=== PATIENT | male | born 1935 | race Caucasian/White ===

== ENCOUNTER 2017-08-17 13:32 | Inpatient (IN) ==
--- NOTE | 2017-08-17 14:01 | Emergency Department Note ---
Disposition Clinical Impression: Weakness, Left-sided weakness, Frequent falls, Hyperglycemia Disposition: Admitted As Inpatient Condition: Fair Time of Disposition: 20:40 Neuro HPI - General Chief Complaint: ED Neuro Symptoms/Deficit Stated Complaint: Increase weakness Time Seen by Provider: 08/17/17 13:39 Source: patient, EMS Mode of arrival: EMS Limitations: no limitations Nursing Notes Reviewed: Yes Vital Signs Reviewed: Yes - History of Present Illness HPI Narrative: 81-year-old male history of dementia and prior CVA with residual left side weakness presents to the emergency department for weakness and frequent falls. He is here with his granddaughter who does this is with the history. On Friday patient sustained to fall and has since been weak. Unknown last known well suspect greater than 24 hours. He was doing therapy at home and his nurse aide called ambulance. Patient refused transport and evaluation. Since then he continues to be weak and has had multiple falls. Today patient was instructed to come to the emergency department for evaluation of stroke as he continues to have some left-sided weakness. The [facility] called for his evaluation for stroke. The granddaughter states he recently fell and injured his left knee. He has a history of a right knee replacement. He fell but denied loss of consciousness. He reports striking his head. Currently he denies any other complaints such as headache, chest pain, shortness of breath, abdominal pain. Symptom Onset Unknown: No - Related Data Home Medications: Home Medications Medication Instructions Recorded Confirmed Allopurinol [Zyloprim] 300 mg PO DAILY 08/17/17 08/17/17 Aspirin Enteric Coated [Aspirin EC] 81 mg PO DAILY 08/17/17 08/17/17 Atorvastatin [Lipitor] 40 mg PO HS 08/17/17 08/17/17 Bacitracin OINT [Ak-Tracin] 1 appl TP BID 08/17/17 08/17/17 Bisacodyl [Woman's Laxative] 5 mg PO DAILY PRN 08/17/17 08/17/17 Cholecalciferol (Vitamin D3) 3,000 unit PO DAILY 08/17/17 08/17/17 [Vitamin D3] Duloxetine HCl [Cymbalta] 60 mg PO DAILY 08/17/17 08/17/17 Furosemide [Lasix] 20 mg PO DAILY 08/17/17 08/17/17 Gabapentin [Neurontin] 300 mg PO BID 08/17/17 08/17/17 Insulin Glargine [Lantus] 60 unit SQ HS 08/17/17 08/17/17 Latanoprost [Xalatan] 1 drop BOTH EYES HS 08/17/17 08/17/17 Memantine HCl 10 mg PO BID 08/17/17 08/17/17 Potassium Chloride [Klor-Con 10 meq PO DAILY 08/17/17 08/17/17 Sprinkle] Saxagliptin HCl [Onglyza] 2.5 mg PO DAILY 08/17/17 08/17/17 Sennosides/Docusate Sodium 2 tab PO BID PRN 08/17/17 08/17/17 [Senna-Docusate Sodium Tablet] Tamsulosin [Flomax] 0.4 mg PO 08/17/17 08/17/17 Timolol Maleate 0.5% [Timolol 1 drop BOTH EYES QA 08/17/17 08/17/17 Maleate 0.5%] amLODIPine [Norvasc] 5 mg PO BID 08/17/17 08/17/17 glipiZIDE [Glucotrol] 5 mg PO BID 08/17/17 08/17/17 Allergies/Adverse Reactions: Allergies Allergy/AdvReac Type Severity Reaction Status Date / Time acetaminophen Allergy Itching Verified 08/17/17 13:45 metformin Allergy Hives Verified 08/17/17 13:45 Oxycodone Allergy Hives Verified 08/17/17 13:45 Terazosin Allergy Hives Verified 08/17/17 13:45 All systems ED: reviewed and negative except as stated. Review of Systems: As Per HPI Constitutional: Reports: weakness. Denies: fever, chills Cardiovascular: Denies: chest pain Respiratory: Denies: cough, dyspnea Gastrointestinal: Denies: abdominal pain, nausea, vomiting Genitourinary: Denies: urgency, dysuria Musculoskeletal: Denies: back pain, neck pain Integumentary: Denies: rash, abrasion Neurological: Reports: weakness, abnormal gait. Denies: headache Past Medical History - Past Medical History Attestation: Yes The following information was validated with the patient. Source: patient Medical history: Reports: arthritis, cancer, CVA, diabetes, hyperlipidemia, hypertension, renal disease Psychiatric history: Reports: depression - Social History Smoking Status: Never smoker Smokeless Tobacco Status: Yes Alcohol use: Reports: none Drug use: Reports: none Physical Exam - General Limitations: no limitations General appearance: alert, in no apparent distress - Head Head exam: atraumatic, normocephalic, normal inspection - Eye Eye exam: Present: normal appearance, PERRL, EOMI - ENT ENT exam: normal exam, normal oropharynx, mucous membranes moist - Neck Neck exam: Present: normal inspection, full ROM, trachea midline - Chest Chest inspection: Present: normal inspection, symmetric chest wall rise - Respiratory Respiratory exam: Present: normal lung sounds bilaterally - Cardiovascular Cardiovascular exam: Present: regular rate, normal rhythm, normal heart sounds - Abdominal Exam Abdominal exam: Present: soft, Non-Tender, normal bowel sounds. Absent: tenderness, distention, guarding, rebound, rigidity - Expanded Lower Extremity Exam Hip/Pelvis exam: Present: pelvis stable. Absent: external rotation, internal rotation, shortening Knee exam: Present: normal inspection, full ROM, tenderness (left knee), knee extension intact, other (prior right knee total knee replacement). Absent: deformity - Neurological Exam Neurological exam: Present: alert, oriented X3, CN II-XII intact - Expanded Neurological Exam Patient oriented to: Present: person, place, time Speech: Present: fluid speech Cranial nerves: EOM function (II, III, IV, ): Normal, facial sensation (V): Normal, facial palsy (VII): Abnormal Left, gag reflex (IX): Normal, spinal accessory function (XI): Normal, tongue deviation (XII): Normal Cerebellar function: heel to oliverso: Normal Motor strength - LUE: 5/5 Motor strength - RUE: 5/5 Motor strength - LLE: 5/5 Motor strength - RLE: 5/5 Upper motor neuron exam: león neglect: Absent bilaterally, pronator drift: Absent bilaterally Sensory exam upper extremity: light touch: Normal Sensory exam lower extremity: light touch: Normal - Psychiatric Psychiatric exam: Present: normal affect, normal mood - Skin Skin exam: Present: warm, dry, intact, normal color. Absent: rash, cyanosis, diaphoresis Course Course Narrative: Patient presents for concern of stroke. Initial NIH score of 2. Last well- known several days ago possibly Friday. He is not a TPA candidate. Stroke alert was not initiated. He has had frequent falls and we evaluated images to his left knee as well as his hip. CT of the head did not show any intracranial abnormality. No acute stroke at this time. Left knee showed some chronic osteoarthritic changes. No acute fracture. Review of his labs he has a mild leukocytosis. Some mild electrolyte abnormalities otherwise normal. Troponin less than 0.03. Given his current condition he would benefit admission for further evaluation for his weakness. - Consultations Consultation #1: Spoke with on-call hospitalist catarina Vasquez to admit for weakness, CVA workup, and frequent falls. No further orders at this time Vital Signs Temperature 98.8 F 08/17/17 13:36 Pulse Rate 76 08/17/17 13:36 Respiratory Rate 18 08/17/17 13:36 Blood Pressure 157/94 08/17/17 13:36 O2 Sat by Pulse Oximetry 95 08/17/17 13:36 Temperature 98.8 F 08/17/17 13:36 Pulse Rate 76 08/17/17 18:30 Respiratory Rate 18 08/17/17 18:30 Blood Pressure 141/97 08/17/17 18:30 O2 Sat by Pulse Oximetry 93 08/17/17 18:30 Oxygen Delivery Oxygen Delivery Room Air Neuro Symptoms/Deficit - MDM Narrative Medical decision making narrative: Patient was discussed with my attending physician who agrees with ED management and final disposition. They independently evaluated the patient. Please refer to their attestation to this encounter for additional information. This note was generated by [employer] voice recognition software and as a result grammatical or spelling errors may occur using this program. - Differential Diagnosis Likely: cerebrovascular accident - Medical Records Medical records reviewed: Yes I reviewed the patient's medical records. - Lab Data Lab results reviewed: Yes I reviewed the patient's lab results. Result diagrams: 08/17/17 13:55 08/17/17 13:55 Lab Results 08/17/17 08/17/17 08/17/17 Range/Units 13:39 13:55 13:55 WBC 13.4 H (4.3-11.1) K/mcL RBC 5.62 H (4.19-5.50) M/mcL Hgb 16.1 (12.9-16.9) g/dL Hct 48.1 (37.5-50.1) % MCV 85.6 (83.0-100.0) fL MCH 28.6 (28.0-33.3) pg MCHC 33.5 (31.6-35.5) g/dL RDW 14.1 (11.5-14.5) % Plt Count 300 (140-400) K/mcL MPV 11.0 (9.4-12.4) fL Immature Gran % 0.4 (0-4) % Seg Neutrophils % 66.9 % Lymphocytes % 22.4 % Monocytes % 8.5 % Eosinophils % 1.4 % Basophils % 0.4 % Neutrophils # 9.0 H (1.6-8.9) K/mcL Lymphocytes # 3.0 (0.6-4.6) K/mcL Monocytes # 1.1 (0.0-1.3) K/mcL Eosinophils # 0.2 (0.0-0.6) K/mcL Basophils # 0.1 (0.0-0.2) K/mcL PT 11.5 (9.4-12.1) Seconds INR 1.1 APTT 35.7 (26.0-36.0) Seconds Sodium (136-145) mEq/L Potassium (3.5-5.1) mEq/L Chloride (98-107) mEq/L Carbon Dioxide (23-29) mEq/L BUN (8-23) mg/dL Creatinine (0.70-1.30) mg/dL Est GFR ( Amer) (> 60) Est GFR (Non-Af Amer) (> 60) BUN/Creatinine Ratio (6-26) Glucose (70-105) mg/dL POC Glucose 370 H (70-99) mg/dL Calculated Osmolality (280-300) Calcium (8.6-10.3) mg/dL Troponin I (< 0.04) ng/mL 08/17/17 Range/Units 13:55 WBC (4.3-11.1) K/mcL RBC (4.19-5.50) M/mcL Hgb (12.9-16.9) g/dL Hct (37.5-50.1) % MCV (83.0-100.0) fL MCH (28.0-33.3) pg MCHC (31.6-35.5) g/dL RDW (11.5-14.5) % Plt Count (140-400) K/mcL MPV (9.4-12.4) fL Immature Gran % (0-4) % Seg Neutrophils % % Lymphocytes % % Monocytes % % Eosinophils % % Basophils % % Neutrophils # (1.6-8.9) K/mcL Lymphocytes # (0.6-4.6) K/mcL Monocytes # (0.0-1.3) K/mcL Eosinophils # (0.0-0.6) K/mcL Basophils # (0.0-0.2) K/mcL PT (9.4-12.1) Seconds INR APTT (26.0-36.0) Seconds Sodium 133 L (136-145) mEq/L Potassium 3.8 (3.5-5.1) mEq/L Chloride 96 L (98-107) mEq/L Carbon Dioxide 28 (23-29) mEq/L BUN 16 (8-23) mg/dL Creatinine 1.16 (0.70-1.30) mg/dL Est GFR ( Amer) > 60 (> 60) Est GFR (Non-Af Amer) > 60 (> 60) BUN/Creatinine Ratio 14 (6-26) Glucose 387 H (70-105) mg/dL POC Glucose (70-99) mg/dL Calculated Osmolality 293 (280-300) Calcium 9.9 (8.6-10.3) mg/dL Troponin I < 0.03 (< 0.04) ng/mL - Radiology Data Radiology results reviewed: Yes I reviewed the patient's radiology results. Head CT 08/17/17 13:39 IMPRESSION: Sequela of chronic small vessel ischemic change. No acute intracranial abnormality seen. D/ / 08/17/2017 14:37:03 Dionte Smith MD / karin Interpreting Provider: Dionte Smith MD Cervical Spine CT 08/17/17 13:40 IMPRESSION: 1. No acute findings in the cervical spine. 2. Mild to moderate cervical spine degenerative changes. 3. Focal subcutaneous contusion in the left paramedian upper back. D/ / Brad Plummer MD / Brad Plummer MD Interpreting Provider: Brad Plummer MD Chest X-Ray 08/17/17 13:40 IMPRESSION: Nonspecific widening of the superior mediastinum. Consider further evaluation with CT chest with contrast. D/ / Murray Wang MD / Murray Wang MD Interpreting Provider: Murray Wang MD Knee X-Ray 08/17/17 13:41 IMPRESSION: 1. No acute osseous abnormality 2. Mild tricompartmental degenerative changes and small effusion. D/ / Murray Wang MD / Murray Wang MD Interpreting Provider: Murray Wang MD Pelvis X-Ray 08/17/17 13:41 IMPRESSION: No acute osseous abnormality of the pelvis. D/ / Adalberto Perez MD / Adalberto Perez MD Interpreting Provider: Adalberto Perez MD - EKG Data EKG attestation: Yes I reviewed and interpreted this EKG. EKG results narrative: EKG performed 1343 atrial fibrillation 78 beats per minute, left bundle branch block no Sgarbossa criteria. Compared to the prior EKG performed at the [facility] on 07/28/2017 showed sinus rhythm with left bundle branch block 76 beats per minute. Otherwise no acute ischemic findings. NIH Stroke Scale - Level of Consciousness LOC: Alert - LOC Questions LOC Questions: Answers one correctly (knew age but did not know month, typically is disoriented to time from dementia) - LOC Commands LOC Commands: Performs both correctly - Best Gaze Best Gaze: Normal - Visual Visual: No visual loss - Facial Palsy Facial Palsy: Minor asymmetry on smiling, flattened nasolabial fold (left) - Motor Arms Motor Arm-Left: No drift for 10 seconds Motor Arm-Right: No drift for 10 seconds - Motor Legs Motor Leg-Left: No drift for 5 seconds Motor Leg-Right: No drift for 5 seconds - Limb Ataxia Limb Ataxia: Absent of affected limb too weak to perform exam - Sensory Sensory: Normal - Best Language Best Language: No aphasia - Dysarthria Dysarthria: Normal - Extinction and Inattention Extinction and Inattention: Normal - NIHSS Total Score NIHSS Total Score: 2 TPA Checklist - Eligibilty for IV tPA 1. LKW equal to or less than 4.5 hours be before treatment: No Attestation Statement - Attestation Attestation: Patient was seen with resident physician. I reviewed the history, physical, assessment and plan, and agree with the findings. I also personally evaluated this patient and had [id number] time with this patient. 81-year-old male presents to the emergency department with chief complaint of increased weakness. Patient says he was seen at the and was transferred here for more definitive management. He states the weakness started on Friday when he fell. He landed on his left knee. Says he hit his head but did not pass out. He has had residual weakness in the left side secondary to an old stroke. Says it feels a little bit worse than usual. Also has some hypomobility of the left side of his face and is unclear if this is new or old. No fevers or chills no chest pain or shortness of breath. Denies other injuries. Review of systems as above remained reviewed negative. Physical exam vital signs are stable. ENT shows no traumatic injury. Neck and back are nontender. Heart regular rhythm and rate. Lungs clear. Abdomen soft and nontender. Extremities abrasions to the left knee but otherwise no obvious deformities. It is diffusely tender to palpation. Neurologically patient has slight hypomobility to the left side of the face again unclear if this is new or old. Leg strength seems relatively symmetric though it hurts when he moves his left leg. 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 Cranial nerves are otherwise intact. Skin abrasion is noted no other rashes. Psych normal. ED course we will do a full neurologic workup on the patient. We will likely admit to the hospital for PT OT and continued evaluation. We will treat symptoms while he is here in the emergency department. Workup was largely unremarkable except for mildly elevated white blood cell count and increased glucose. Patient had no changes in his neurologic status throughout the course of the stay. We spoke with the hospitalist service to arrange for admission for additional evaluation and treatment as indicated. I agree with resident physician assessment and plan.
[2017-08-17 14:05] LABS: Hematocrit 48.1 % (37.5-50.1); Hemoglobin 16.1 g/dL (12.9-16.9); Immature Granulocytes % 0.4 % (0-4); Lymphocytes % 22.4 %; Mean Corpuscular HGB Conc 33.5 g/dL (31.6-35.5); Mean Corpuscular Hemoglobin 28.6 pg (28.0-33.3); Mean Corpuscular Volume 85.6 fL (83.0-100.0); Monocytes % 8.5 %; Platelet Count 300 K/mcL (140-400); Red Blood Count 5.62 M/mcL (4.19-5.50); Red Cell Distribution Width 14.1 % (11.5-14.5); Segmented Neutrophils % 66.9 %
[2017-08-17 14:06] LABS: Basophils # 0.1 K/mcL (0.0-0.2); Basophils % 0.4 %; Eosinophils # 0.2 K/mcL (0.0-0.6); Eosinophils % 1.4 %; Monocytes # 1.1 K/mcL (0.0-1.3)
[2017-08-17 14:26] LABS: BUN/Creatinine Ratio 14 (6-26); Blood Urea Nitrogen 16 mg/dL (8-23); Calcium 9.9 mg/dL (8.6-10.3); Carbon Dioxide 28 mEq/L (23-29); Chloride 96 mEq/L (98-107); Glucose 387 mg/dL (70-105); Osmolality,Calculated 293 (280-300); Potassium 3.8 mEq/L (3.5-5.1); Sodium 133 mEq/L (136-145); eGFR For African Americans > 60 (> 60); eGFR For Non-African Americans > 60 (> 60)
[2017-08-17 14:27] LABS: Troponin I < 0.03 ng/mL (< 0.04)
[2017-08-17 14:56] LABS: Activated Partial Thrombo Time 35.7 Seconds (26.0-36.0); INR 1.1; Prothrombin Time 11.5 Seconds (9.4-12.1)
[2017-08-17] MEDS ORDERED: Aspirin 81 MG TAB.CHEW PO STA (17:54)
--- NOTE | 2017-08-17 20:28 | Internal Med History&Physical ---
Date of Encounter: 08/17/17 Time of Encounter: 20:24 Assessment and Plan (1) Left-sided weakness Current visit: Yes Status: Acute Head CT negative will obtain MRI tomorrow on consult neurology. (2) Frequent falls Current visit: Yes Status: Acute Recurrent fall due to generalized weakness and left-sided weakness as well we will consult neurology for further evaluation then PTOT (3) HTN (hypertension) Current visit: Yes Status: Chronic Chronic we will resume home medication Qualifiers: Hypertension type: essential hypertension Qualified Code(s): I10 - Essential (primary) hypertension (4) Diabetes 1.5, managed as type 2 Current visit: Yes Status: Chronic Chronic resume home medication and place on sliding scale (5) Acute depression Current visit: Yes Status: Chronic Chronic resume home medication Internal Medicine - H&P: HPI Chief complaint: recurrent falls and left v sided weakness Admitted From: Emergency Dept Plans for Post Hospital Care: Home History of present illness: Mr. Gimenez is a 81 year old male Patient with history of hypertension, diabetes, high cholesterol, CK D and depression and dementia patient has had recurrent fall in the last 3 days He is a [facility] patient Patient was seen by visiting nurse and then called [facility] for evaluation for possible stroke because of left-sided weakness and then was told to come the emergency room here. Patient reported generalized weakness and that left-sided weakness but able to move the arm and legs. All imaging was negative including head CT spine CTs pelvis no fracture patient will be admitted for further evaluation. Past Med Surg Social Fam HX - Past Medical History Medical history: arthritis, cancer, CVA, diabetes, hyperlipidemia, hypertension , renal disease Psychiatric history: depression - Social History Smoking Status: Never smoker Smokeless Tobacco Status: Yes Alcohol use: none Drug use: none Internal Medicine - H&P: Meds Allopurinol [Zyloprim] 300 mg PO DAILY 08/17/17 [History] Aspirin Enteric Coated [Aspirin EC] 81 mg PO DAILY 08/17/17 [History] Atorvastatin [Lipitor] 40 mg PO HS 08/17/17 [History] Bacitracin OINT [Ak-Tracin] 1 appl TP BID 08/17/17 [History] Bisacodyl [Woman's Laxative] 5 mg PO DAILY PRN 08/17/17 [History] Cholecalciferol (Vitamin D3) [Vitamin D3] 3,000 unit PO DAILY 08/17/17 [History] Duloxetine HCl [Cymbalta] 60 mg PO DAILY 08/17/17 [History] Furosemide [Lasix] 20 mg PO DAILY 08/17/17 [History] Gabapentin [Neurontin] 300 mg PO BID 08/17/17 [History] Insulin Glargine [Lantus] 60 unit SQ HS 08/17/17 [History] Latanoprost [Xalatan] 1 drop BOTH EYES HS 08/17/17 [History] Memantine HCl 10 mg PO BID 08/17/17 [History] Potassium Chloride [Klor-Con Sprinkle] 10 meq PO DAILY 08/17/17 [History] Saxagliptin HCl [Onglyza] 2.5 mg PO DAILY 08/17/17 [History] Sennosides/Docusate Sodium [Senna-Docusate Sodium Tablet] 2 tab PO BID PRN 08/17 [History] Tamsulosin [Flomax] 0.4 mg PO HS 08/17/17 [History] Timolol Maleate 0.5% [Timolol Maleate 0.5%] 1 drop BOTH EYES QAM 08/17/17 [ History] amLODIPine [Norvasc] 5 mg PO BID 08/17/17 [History] glipiZIDE [Glucotrol] 5 mg PO BID 08/17/17 [History] 3 Allergy/AdvReac Type Severity Reaction Status Date / Time acetaminophen Allergy Itching Verified 08/17/17 13:45 metformin Allergy Hives Verified 08/17/17 13:45 Oxycodone Allergy Hives Verified 08/17/17 13:45 Terazosin Allergy Hives Verified 08/17/17 13:45 All Systems PM: A 10-system review of systems was performed and is negative for pertinent findings except as documented above in the HPI. - Constitutional Vitals: Temp Pulse Resp BP Pulse Ox 98.8 F 76 18 141/97 93 08/17/17 13:36 08/17/17 18:30 08/17/17 18:30 08/17/17 18:30 08/17/17 18:30 - Head Head exam: Present: atraumatic, normocephalic - Eye Eye exam: Present: PERRL, conjuntiva pink, sclera anicteric Pupils: Present: PERRL - Neck Neck exam general surgery: Present: supple, trachea midline. Absent: lymphadenopathy - Cardiovascular Cardiovascular exam: Present: RRR, +S1, +S2. Absent: diastolic murmur, gallop, rubs, systolic murmur - Extremities Exam Extremities exam: Present: warm, radial pulses palpable and symmetrical. Absent : calf tenderness, cyanotic, pedal edema Internal Med - H&P Results - Labs CBC & Chem 7: 08/17/17 13:55 08/17/17 13:55 Labs: Short CBC 08/17/17 Range/Units 13:55 WBC 13.4 H (4.3-11.1) K/mcL Hgb 16.1 (12.9-16.9) g/dL Hct 48.1 (37.5-50.1) % Plt Count 300 (140-400) K/mcL Neutrophils # 9.0 H (1.6-8.9) K/mcL BMP 08/17/17 13:55 Sodium 133 L Potassium 3.8 Chloride 96 L Carbon Dioxide 28 BUN 16 Creatinine 1.16 Glucose 387 H Calcium 9.9 Cardiac Enzymes 08/17/17 Range/Units 13:55 Troponin I < 0.03 (< 0.04) ng/mL - Impressions ITS Impressions Head CT 08/17/17 13:39 IMPRESSION: Sequela of chronic small vessel ischemic change. No acute intracranial abnormality seen. D/ / 08/17/2017 14:37:03 Dionte Smith MD / karin Interpreting Provider: Dionte Smith MD Cervical Spine CT 08/17/17 13:40 IMPRESSION: 1. No acute findings in the cervical spine. 2. Mild to moderate cervical spine degenerative changes. 3. Focal subcutaneous contusion in the left paramedian upper back. D/ / Brad Plummer MD / Brad Plummer MD Interpreting Provider: Brad Plummer MD Chest X-Ray 08/17/17 13:40 IMPRESSION: Nonspecific widening of the superior mediastinum. Consider further evaluation with CT chest with contrast. D/ / Murray Wang MD / Murray Wang MD Interpreting Provider: Murray Wang MD Knee X-Ray 08/17/17 13:41 IMPRESSION: 1. No acute osseous abnormality 2. Mild tricompartmental degenerative changes and small effusion. D/ / Murray Wang MD / Murray Wang MD Interpreting Provider: Murray Wang MD Pelvis X-Ray 08/17/17 13:41 IMPRESSION: No acute osseous abnormality of the pelvis. D/ / Adalberto Perez MD / Adalberto Perez MD Interpreting Provider: Adalberto Perez MD
[2017-08-17] MEDS ORDERED: Acetaminophen 325 MG TABLET PO PRN (20:33)
[2017-08-17] MEDS ORDERED: Naloxone 0.4 MG/ML INJ IVP PRN (20:33)
[2017-08-17] MEDS ORDERED: traMADol 50 MG TABLET PO PRN (20:33)
[2017-08-17] MEDS ORDERED: Sennosides/Docusate Sodium TABLET PO PRN (20:36)
[2017-08-17] MEDS ORDERED: *HR* Dextrose 50 % in Water (Syg) 50 ML SYRINGE IVP PRN (20:43)
[2017-08-17] MEDS ORDERED: D5% in Water 1,000 ML IVC PRN (20:43)
[2017-08-17] MEDS ORDERED: Dextrose Gel 15 GM/37.5 ML TUBE PO PRN ×2 (20:43)
[2017-08-17] MEDS ORDERED: 0.9 % Sodium Chloride 1,000 ML IVC SCH (20:45)
[2017-08-17] MEDS ORDERED: NON-FORMULARY MEDICATION 1 EACH EACH (Insulin Glargine [Lantus] 60 UNIT) SQ SCH (21:00)
[2017-08-17] MEDS ORDERED: Insulin LISPRO 300 UNITS/3 ML VIAL SQ SCH (21:00)
[2017-08-17] MEDS: Insulin DETEMIR 100 UNIT/ML X5UNITS SQ SCH (22:51)
[2017-08-17] MEDS: amLODIPine 5 MG TABLET PO SCH (23:11)
[2017-08-17] MEDS: Gabapentin 300 MG CAPSULE PO SCH (23:11)
[2017-08-18] MEDS: Latanoprost 2.5 ML BOTTLE BOTH EYES SCH ×2 (01:35→22:06)
[2017-08-18 03:56] LABS: Hematocrit 45.3 % (37.5-50.1); Hemoglobin 15.2 g/dL (12.9-16.9); Mean Corpuscular HGB Conc 33.6 g/dL (31.6-35.5); Mean Corpuscular Hemoglobin 28.7 pg (28.0-33.3); Mean Corpuscular Volume 85.5 fL (83.0-100.0); Mean Platelet Volume 10.8 fL (9.4-12.4); Platelet Count 274 K/mcL (140-400); Red Cell Distribution Width 14.3 % (11.5-14.5)
[2017-08-18 04:15] LABS: Alanine Aminotransferase 9 Units/L (7-52); Albumin 3.5 g/dL (3.5-5.7); Albumin/Globulin Ratio 1.2 (1.1-2.2); Alkaline Phosphatase 99 Units/L (34-104); Aspartate Amino Transferase 11 Units/L (13-39); BUN/Creatinine Ratio 17 (6-26); Bilirubin,Total 0.6 mg/dL (0.3-1.0); Blood Urea Nitrogen 17 mg/dL (8-23); Calcium 8.9 mg/dL (8.6-10.3); Carbon Dioxide 27 mEq/L (23-29); Chloride 99 mEq/L (98-107); Chol/HDL Ratio 4.9 (0-4.9); Cholesterol 128 mg/dL (< 200); Glucose 266 mg/dL (70-105); HDL Cholesterol 26 mg/dL (40-59); LDL Cholesterol,Calculated 49 mg/dL (0-99); Osmolality,Calculated 289 (280-300); Phosphorous 2.8 mg/dL (2.7-4.5); Sodium 134 mEq/L (136-145); Total Protein 6.5 g/dL (6.4-8.9); Triglycerides 267 mg/dL (< 150); eGFR For African Americans > 60 (> 60); eGFR For Non-African Americans > 60 (> 60)
[2017-08-18] MEDS: *HR* Enoxaparin 40 MG/0.4 ML SYRINGE SQ SCH (05:56)
[2017-08-18] MEDS ORDERED: Isovue-370 500 ML INFUS..BTL IV ONE (08:10)
--- NOTE | 2017-08-18 08:25 | Neurology - Consult Note ---
<Usman So - Last Filed: 08/18/17 08:18> Date of Encounter: 08/18/17 Time of Encounter: 08:18 Assessment and Plan (1) Left-sided weakness Current Visit: Yes Status: Acute neuro exam shows left upper extremity and left lower extremity weakness with hyporeflexia on left brachioradialis, triceps, biceps, patellar, Achilles. CT head shows chronic small vessel ischemic changes, no acute abnormalities. Cerebellar atrophy. Plan: Aspirin, statin. MRI pending. CTA head neck ordered. PT/OT. Echocardiogram ordered. (2) Frequent falls Current Visit: Yes Status: Acute x-ray pelvis knee, cxr negative for acute changes. CT cervical spine negative for fracture. Pt/OT (3) HTN (hypertension) Current Visit: Yes Status: Chronic controlled. continue home medicaitons Qualifiers: Hypertension type: essential hypertension Qualified Code(s): I10 - Essential (primary) hypertension (4) Diabetes 1.5, managed as type 2 Current Visit: Yes Status: Chronic Hyperglycemic on admission non-insulin dependent. HgA1c ordered (5) Atrial fibrillation Current Visit: Yes Status: Acute on admission EKg showed atrial fibrillation currently sinus rhythm not candidate for anticoagulation due to hx of multiple falls: high risk for bleeding. Qualifiers: Atrial fibrillation type: paroxysmal Qualified Code(s): I48.0 - Paroxysmal atrial fibrillation History of Present Illness Chief complaint: falls HPI: Mr. Gimenez is a 81 year old male presented with cc of fall. Hx obtained from patient and EMR. Patient was noticed by family to fall multiple times since last week. [facility]. Patient reports he has left sided weakness starting last firday. He fell to his left side and onto his left knee . Patient did not loose consciousness. Patient speech is noticeably garbled but he reports it is always that way. He reports hx of CVA 6- 8 years ago and also report hx of left sided weakness. He reports that falling is common for him. He denies numbness, tingling, difficulty swallowing, changes in vision, changes in hearing. Past Med Surg Social Fam HX - Past Medical History Medical history: arthritis, cancer, CVA, diabetes, hyperlipidemia, hypertension , renal disease Psychiatric history: depression - Social History Smoking Status: Never smoker Smokeless Tobacco Status: Yes Alcohol use: none Drug use: none Medications and Allergies Allopurinol [Zyloprim] 300 mg PO DAILY 08/17/17 [History] Aspirin Enteric Coated [Aspirin EC] 81 mg PO DAILY 08/17/17 [History] Atorvastatin [Lipitor] 40 mg PO HS 08/17/17 [History] Bacitracin OINT [Ak-Tracin] 1 appl TP BID 08/17/17 [History] Bisacodyl [Woman's Laxative] 5 mg PO DAILY PRN 08/17/17 [History] Cholecalciferol (Vitamin D3) [Vitamin D3] 3,000 unit PO DAILY 08/17/17 [History] Duloxetine HCl [Cymbalta] 60 mg PO DAILY 08/17/17 [History] Furosemide [Lasix] 20 mg PO DAILY 08/17/17 [History] Gabapentin [Neurontin] 300 mg PO BID 08/17/17 [History] Insulin Glargine [Lantus] 60 unit SQ HS 08/17/17 [History] Latanoprost [Xalatan] 1 drop BOTH EYES HS 08/17/17 [History] Memantine HCl 10 mg PO BID 08/17/17 [History] Potassium Chloride [Klor-Con Sprinkle] 10 meq PO DAILY 08/17/17 [History] Saxagliptin HCl [Onglyza] 2.5 mg PO DAILY 08/17/17 [History] Sennosides/Docusate Sodium [Senna-Docusate Sodium Tablet] 2 tab PO BID PRN 08/17 [History] Tamsulosin [Flomax] 0.4 mg PO HS 08/17/17 [History] Timolol Maleate 0.5% [Timolol Maleate 0.5%] 1 drop BOTH EYES QAM 08/17/17 [ History] amLODIPine [Norvasc] 5 mg PO BID 08/17/17 [History] glipiZIDE [Glucotrol] 5 mg PO BID 08/17/17 [History] 3 Allergy/AdvReac Type Severity Reaction Status Date / Time acetaminophen Allergy Itching Verified 08/17/17 13:45 metformin Allergy Hives Verified 08/17/17 13:45 Oxycodone Allergy Hives Verified 08/17/17 13:45 Terazosin Allergy Hives Verified 08/17/17 13:45 All Systems: The remainder of the systems were reviewed and are negative Physical Examination - Vital Signs Vital Signs: Initial Vital Signs Temp Pulse Resp BP Pulse Ox 98.8 F 76 18 157/94 95 08/17/17 13:36 08/17/17 13:36 08/17/17 13:36 08/17/17 13:36 08/17/17 13:36 - Constitutional General appearance: comfortable - Neurologic Sensorimotor examination: intact Motor examination - right side: 08/30: deltoids, biceps, triceps, wrist flexion, wrist extension, lighting fixture installer, hip flexors, tibialis Anterior, quadriceps, toe extension (EHL), plantarflexion Motor examination - left side: 06/30: deltoids, biceps, triceps, wrist flexion, wrist extension, hip flexors, lighting fixture installer, quadriceps, tibialis Anterior, toe extension (EHL), plantarflexion Detailed sensory examination: light touch Reflexes: Biceps: 1+, Triceps: 1+, Brachioradialis: 1+, Patella: 1+, Achilles: 1 + Mental Status Examination: awake, oriented to person, oriented to place, follows commands appropriately, answers questions appropriately Cranial nerve examination: PERRL, EOMI, visual shepherd intact, sensory to face intact, mastication intact, hearing is intact symmetrically, soft palate elevates bilaterally upon phonation, tongue protrudes midline, no atrophy or facial fasiculations present Cerebellar examination: no dysmetria, dysarthria Results - Laboratory Findings CBC and BMP: 08/18/17 03:41 08/18/17 03:41 Abnormal lab findings: Abnormal lab results Neutrophils # 9.0 K/mcL (1.6-8.9) H 08/17/17 13:55 Sodium 134 mEq/L (136-145) L 08/18/17 03:41 Glucose 266 mg/dL (70-105) H 08/18/17 03:41 POC Glucose 360 mg/dL (70-99) H 08/17/17 22:09 AST 11 Units/L (13-39) L 08/18/17 03:41 Triglycerides 267 mg/dL (< 150) H 08/18/17 03:41 VLDL Cholesterol, Calc 53 mg/dL (< 31) H 08/18/17 03:41 HDL Cholesterol 26 mg/dL (40-59) L 08/18/17 03:41 Consult Discharge Plan - Plan [facility]errals[facility] Care Provider[facility] - <Brad Vail - Last Filed: 08/18/17 14:51> Date of Encounter: 08/18/17 Time of Encounter: 14:45 Assessment and Plan (1) Left-sided weakness Current Visit: Yes Status: Acute This patient certainly will must look to rule out the possibility of an acute right hemispheric lesion. CTA scans of the head and neck reveal no evidence of significant intracranial stenosis or stenosis of the carotid artery circulation. MRI scan of the brain is pending. I will reevaluate him in the morning. History of Present Illness HPI: The chart was reviewed, the patient was seen and examined along with the internal medicine resident. I agree with his assessment as stated above. All Systems: The remainder of the systems were reviewed and are negative Review of Systems: 10 point review of systems is consistent with a history of present illness and otherwise negative. Physical Examination - Vital Signs Vital Signs: Initial Vital Signs Temp Pulse Resp BP Pulse Ox 98.8 F 76 18 157/94 95 08/17/17 13:36 08/17/17 13:36 08/17/17 13:36 08/17/17 13:36 08/17/17 13:36 - Exam Exam: I did examine this patient independently and the medicine resident was with me at the time. I agree with his exam is recorded. Results - Laboratory Findings CBC and BMP: 08/18/17 03:41 08/18/17 03:41 Abnormal lab findings: Abnormal lab results Neutrophils # 9.0 K/mcL (1.6-8.9) H 08/17/17 13:55 Sodium 134 mEq/L (136-145) L 08/18/17 03:41 Glucose 266 mg/dL (70-105) H 08/18/17 03:41 POC Glucose 360 mg/dL (70-99) H 08/17/17 22:09 AST 11 Units/L (13-39) L 08/18/17 03:41 Triglycerides 267 mg/dL (< 150) H 08/18/17 03:41 VLDL Cholesterol, Calc 53 mg/dL (< 31) H 08/18/17 03:41 HDL Cholesterol 26 mg/dL (40-59) L 08/18/17 03:41
--- NOTE | 2017-08-18 09:07 | Internal Med Progress Note ---
<Fredrick Weinstein - Last Filed: 08/18/17 15:36> Date of Encounter: 08/18/17 Time of Encounter: 09:07 - Assessment and plan (1) Left-sided weakness Current Visit: Yes Status: Acute Assessment and plan: Patient frequently has falls, last 3 days ago but did not lose consciousness. Patient is currently asymptomatic. Neurology is on board, all work up so far has been negative for CVA. CT head negative for hemorrhage but does show chronic small vessel ischemic changes, cerebellar atrophy. CTA head/neck - Minimal narrowing involving the M1 segment of the right middle cerebral artery that is likely not clinically significant. Moderate chronic small vessel ischemic disease within the periventricular white matter with associated cerebral atrophy. - per nephro ct ASA, statin - MRI pending - PT/OT ordered - echocardiogram - pending - appreciate neuro's input (2) Dementia Current Visit: Yes Status: Acute Assessment and plan: continue home meds. Qualifiers: Qualified Code(s): F03.90 - Unspecified dementia without behavioral disturbance (3) Hyperlipidemia Current Visit: Yes Status: Acute Assessment and plan: chronic. Qualifiers: Qualified Code(s): E78.5 - Hyperlipidemia, unspecified (4) Acute depression Current Visit: Yes Status: Chronic Assessment and plan: chronic. will continue to monitor. denies suicidal or homicidal ideation at this time. (5) Diabetes 1.5, managed as type 2 Current Visit: Yes Status: Chronic Assessment and plan: Glucose has been poorly controlled since hospitalization. Glu on chem have been 387 and 266, there have been reports of hypoglycemia in the past. Will follow closely. - continue SSI medium dose. Will increase if no low BG, and remains elevated tomorrow. (6) Frequent falls Current Visit: Yes Status: Acute Assessment and plan: see above. - bed alarms at all times - up only with assistance (7) HTN (hypertension) Current Visit: Yes Status: Chronic Assessment and plan: michelle meds include amlodopine, unclear if he is on other anti-HTN meds. On this admission, BP has been well controlled. If determined to be a CVA, will then allow for permissive HTN, but at this point unlikely. - ct amlodipine, flomax - closely monitor BP Qualifiers: Hypertension type: essential hypertension Qualified Code(s): I10 - Essential (primary) hypertension (8) Atrial fibrillation Current Visit: Yes Status: Acute Assessment and plan: patient has known hx of afib, but due to frequent falls patient is a poor candidate for anti-coag at this point. Qualifiers: Atrial fibrillation type: paroxysmal Qualified Code(s): I48.0 - Paroxysmal atrial fibrillation (9) DVT prophylaxis Current Visit: Yes Status: Acute Assessment and plan: Intermittent pneumatic compression, due to high risk of fall - Time Spent With Patient Total time spent is greater than 50% in coordination of care (as documented) at patient's floor/unit and/or counseling patient: Greater than 35 minutes (40 minutes) - Subjective Interval history: Mr Gimenez is a 81 yo M w/ pmh of HTN, DM, HLD, Depression, Dementia, [facility], experienced a fall 3 days ago w/o LOC who presented with generalized weakness and LEft sided UE and LE weakness. In the ED, Ct was ordered which showed no acute ischemic changes but did show chronic small vessel changes, cerebellar atrophy. Patient is seen and examined today. Patient denies weakness in his left extremities today. His only complaint is his right knee where he has arthritis and scar from a previous surgery. Patient is a poor historian. Patient denies chest pain, shortness of breath, fever, chills, nausea, vomiting. - Constitutional Vitals: Temp Pulse Resp BP Pulse Ox 98.6 F 79 17 135/80 93 08/18/17 06:36 08/18/17 06:36 08/18/17 06:36 08/18/17 06:36 08/18/17 06:36 General appearance: Present: cooperative, A&O X 1, pleasant - Head Head exam: Present: atraumatic, normocephalic - Neck Neck exam general surgery: Present: supple, trachea midline. Absent: lymphadenopathy - Respiratory Respiratory exam: Present: CTAB. Absent: accessory muscle use, rales, rhonchi, wheezes - Cardiovascular Cardiovascular exam: Present: RRR. Absent: systolic murmur - GI/Abdominal GI/Abdominal exam: Present: normal bowel sounds, soft, no peritoneal signs. Absent: distended, tenderness - Extremities Exam Extremities exam: Present: warm, radial pulses palpable and symmetrical. Absent : calf tenderness, cyanotic, pedal edema - Neurological Exam Neurological exam: Present: alert, CN II-XII intact, strengths equal and symetr throughout, speech deficit (according to family members this is baseline for patient, and not acute). Absent: motor sensory deficit, no focal deficits, pronater drift, facial droop - Psychiatric Psychiatric exam: Present: normal affect, normal mood Internal Medicine: Result - Labs CBC & Chem 7: 08/18/17 03:41 08/18/17 03:41 Labs: Short CBC 08/18/17 Range/Units 03:41 WBC 10.7 (4.3-11.1) K/mcL Hgb 15.2 (12.9-16.9) g/dL Hct 45.3 (37.5-50.1) % Plt Count 274 (140-400) K/mcL BMP 08/18/17 03:41 Sodium 134 L Potassium 4.0 Chloride 99 Carbon Dioxide 27 BUN 17 Creatinine 1.03 Glucose 266 H Calcium 8.9 Cardiac Enzymes 08/17/17 08/18/17 Range/Units 22:06 03:41 Troponin I < 0.03 < 0.03 (< 0.04) ng/mL Liver Function 08/18/17 Range/Units 03:41 Total Bilirubin 0.6 (0.3-1.0) mg/dL AST 11 L (13-39) Units/L ALT 9 (7-52) Units/L Alkaline Phosphatase 99 (34-104) Units/L Albumin 3.5 (3.5-5.7) g/dL - ABG Interpretation ABG results: PT/INR, D-dimer PT 11.5 Seconds (9.4-12.1) 08/17/17 13:55 Consult Discharge Plan - Plan [facility]errals: [facility]Primary Care Provider[facility] - <William Calhoun H - Last Filed: 08/18/17 16:17> Date of Encounter: 08/18/17 - Assessment and plan (1) Left-sided weakness Current Visit: Yes Status: Acute (2) Frequent falls Current Visit: Yes Status: Acute (3) HTN (hypertension) Current Visit: Yes Status: Chronic Qualifiers: Hypertension type: essential hypertension Qualified Code(s): I10 - Essential (primary) hypertension (4) Diabetes 1.5, managed as type 2 Current Visit: Yes Status: Chronic (5) Acute depression Current Visit: Yes Status: Chronic (6) Atrial fibrillation Current Visit: Yes Status: Acute Qualifiers: Atrial fibrillation type: paroxysmal Qualified Code(s): I48.0 - Paroxysmal atrial fibrillation (7) Dementia Current Visit: Yes Status: Acute Qualifiers: Qualified Code(s): F03.90 - Unspecified dementia without behavioral disturbance (8) Hyperlipidemia Current Visit: Yes Status: Acute Qualifiers: Qualified Code(s): E78.5 - Hyperlipidemia, unspecified (9) DVT prophylaxis Current Visit: Yes Status: Acute - Time Spent With Patient Total time spent is greater than 50% in coordination of care (as documented) at patient's floor/unit and/or counseling patient: - Constitutional Vitals: Temp Pulse Resp BP Pulse Ox 98.6 F 79 18 130/72 93 08/18/17 15:47 08/18/17 15:47 08/18/17 15:47 08/18/17 15:47 08/18/17 15:47 Internal Medicine: Result - Labs CBC & Chem 7: 08/18/17 03:41 08/18/17 03:41 Labs: Short CBC 08/18/17 Range/Units 03:41 WBC 10.7 (4.3-11.1) K/mcL Hgb 15.2 (12.9-16.9) g/dL Hct 45.3 (37.5-50.1) % Plt Count 274 (140-400) K/mcL BMP 08/18/17 03:41 Sodium 134 L Potassium 4.0 Chloride 99 Carbon Dioxide 27 BUN 17 Creatinine 1.03 Glucose 266 H Calcium 8.9 Cardiac Enzymes 08/17/17 08/18/17 08/18/17 Range/Units 22:06 03:41 09:55 Troponin I < 0.03 < 0.03 < 0.03 (< 0.04) ng/mL Liver Function 08/18/17 Range/Units 03:41 Total Bilirubin 0.6 (0.3-1.0) mg/dL AST 11 L (13-39) Units/L ALT 9 (7-52) Units/L Alkaline Phosphatase 99 (34-104) Units/L Albumin 3.5 (3.5-5.7) g/dL - ABG Interpretation ABG results: PT/INR, D-dimer PT 11.5 Seconds (9.4-12.1) 08/17/17 13:55 - Impressions Impressions Head CTA 08/18/17 08:10 IMPRESSION: Minimal narrowing involving the M1 segment of the right middle cerebral artery that is likely not clinically significant. Moderate atherosclerosis involving the origin of both vertebral arteries. Moderate chronic small vessel ischemic disease within the periventricular white matter with associated cerebral atrophy. D/ / 08/18/2017 11:51:39 Fredis Connell MD / lon Interpreting Provider: Fredis Connell MD Neck CTA 08/18/17 08:10 IMPRESSION: Minimal narrowing involving the M1 segment of the right middle cerebral artery that is likely not clinically significant. Moderate atherosclerosis involving the origin of both vertebral arteries. Moderate chronic small vessel ischemic disease within the periventricular white matter with associated cerebral atrophy. D/ / 08/18/2017 11:51:39 Fredis Connell MD / lon Interpreting Provider: Fredis Connell MD - Attending Attestation dysarthria , consider possible CVA MRI pending neurology recommendations appreciated No anticoagulation due to high risk of falling I examined this patient and my medical decision-making was reviewed with the Resident Physician. I agree with the documented findings, disposition and treatment plan as described except to the extent set forth below.
[2017-08-18] MEDS: amLODIPine 5 MG TABLET PO SCH ×2 (10:38→22:03)
[2017-08-18] MEDS: Gabapentin 300 MG CAPSULE PO SCH ×2 (10:38→22:02)
[2017-08-18] MEDS: Insulin LISPRO 300 UNITS/3 ML VIAL SQ SCH ×3 (10:39→16:22)
[2017-08-18] MEDS: Cholecalciferol (D-3) 1,000 UNIT TABLET PO SCH (10:39)
[2017-08-18] MEDS: Aspirin Enteric Coated 81 MG Tablet PO SCH (10:39)
[2017-08-18] MEDS: Saxagliptin Hcl [Onglyza] 2.5 MG PO SCH (10:41)
[2017-08-18] MEDS ORDERED: Perflutren Lipid Microsphere 2 ML VIAL ONE (16:08)
[2017-08-18] MEDS: Insulin DETEMIR 100 UNIT/ML X5UNITS SQ SCH (22:04)
[2017-08-19 05:24] LABS: Basophils # 0.1 K/mcL (0.0-0.2); Basophils % 0.6 %; Eosinophils # 0.2 K/mcL (0.0-0.6); Eosinophils % 2.5 %; Hematocrit 42.4 % (37.5-50.1); Immature Granulocytes % 0.5 % (0-4); Lymphocytes # 2.2 K/mcL (0.6-4.6); Lymphocytes % 23.1 %; Mean Corpuscular Volume 84.8 fL (83.0-100.0); Mean Platelet Volume 11.1 fL (9.4-12.4); Monocytes # 0.8 K/mcL (0.0-1.3); Monocytes % 8.4 %; Neutrophils # 6.2 K/mcL (1.6-8.9); Platelet Count 285 K/mcL (140-400); Red Cell Distribution Width 14.4 % (11.5-14.5); Segmented Neutrophils % 64.9 %
[2017-08-19 05:41] LABS: BUN/Creatinine Ratio 20 (6-26); Blood Urea Nitrogen 19 mg/dL (8-23); Calcium 8.7 mg/dL (8.6-10.3); Carbon Dioxide 25 mEq/L (23-29); Chloride 102 mEq/L (98-107); Glucose 244 mg/dL (70-105); Osmolality,Calculated 288 (280-300); Potassium 3.8 mEq/L (3.5-5.1); Sodium 134 mEq/L (136-145); eGFR For African Americans > 60 (> 60); eGFR For Non-African Americans > 60 (> 60)
[2017-08-19] MEDS: *HR* Enoxaparin 40 MG/0.4 ML SYRINGE SQ SCH (05:54)
[2017-08-19 06:41] LABS: Estimated Average Glucose 326 mg/dl
--- NOTE | 2017-08-19 07:31 | Internal Med Progress Note ---
<Fredrick Weinstein - Last Filed: 08/19/17 07:31> Date of Encounter: 08/19/17 Time of Encounter: 07:31 - Assessment and plan (1) Left-sided weakness Status: Acute (3) Diabetes 1.5, managed as type 2 Status: Chronic (4) Dementia Status: Acute Qualifiers: Qualified Code(s): F03.90 - Unspecified dementia without behavioral disturbance (5) Hyperlipidemia Status: Acute Qualifiers: Qualified Code(s): E78.5 - Hyperlipidemia, unspecified (6) DVT prophylaxis Status: Acute (7) Acute depression Status: Chronic (8) Frequent falls Status: Acute (9) HTN (hypertension) Status: Chronic Qualifiers: Hypertension type: essential hypertension Qualified Code(s): I10 - Essential (primary) hypertension (10) Atrial fibrillation Status: Acute Qualifiers: Atrial fibrillation type: paroxysmal Qualified Code(s): I48.0 - Paroxysmal atrial fibrillation - Time Spent With Patient Total time spent is greater than 50% in coordination of care (as documented) at patient's floor/unit and/or counseling patient: - Subjective Interval history: Mr Gimenez is a 81 yo M w/ pmh of HTN, DM, HLD, Depression, Dementia, [facility], experienced a fall 3 days ago w/o LOC who presented with generalized weakness and LEft sided UE and LE weakness. In the ED, Ct was ordered which showed no acute ischemic changes but did show chronic small vessel changes, cerebellar atrophy. Patient is seen and examined today. Patient denies weakness in his left extremities today. His only complaint is his right knee where he has arthritis and scar from a previous surgery. Patient is a poor historian. Patient denies chest pain, shortness of breath, fever, chills, nausea, vomiting. - Constitutional Vitals: Temp Pulse Resp BP Pulse Ox 98.3 F 85 17 109/69 96 08/19/17 06:51 08/19/17 06:51 08/19/17 06:51 08/19/17 06:51 08/19/17 06:51 General appearance: Present: cooperative, A&O X 1, pleasant Internal Medicine: Result - Labs CBC & Chem 7: 08/19/17 04:35 08/19/17 04:35 Labs: Short CBC 08/19/17 Range/Units 04:35 WBC 9.6 (4.3-11.1) K/mcL Hgb 14.0 (12.9-16.9) g/dL Hct 42.4 (37.5-50.1) % Plt Count 285 (140-400) K/mcL Neutrophils # 6.2 (1.6-8.9) K/mcL BMP 08/19/17 04:35 Sodium 134 L Potassium 3.8 Chloride 102 Carbon Dioxide 25 BUN 19 Creatinine 0.96 Glucose 244 H Calcium 8.7 Cardiac Enzymes 08/18/17 Range/Units 09:55 Troponin I < 0.03 (< 0.04) ng/mL - ABG Interpretation ABG results: PT/INR, D-dimer PT 11.5 Seconds (9.4-12.1) 08/17/17 13:55 - Impressions Impressions Head CTA 08/18/17 08:10 IMPRESSION: Minimal narrowing involving the M1 segment of the right middle cerebral artery that is likely not clinically significant. Moderate atherosclerosis involving the origin of both vertebral arteries. Moderate chronic small vessel ischemic disease within the periventricular white matter with associated cerebral atrophy. D/ / 08/18/2017 11:51:39 Fredis Connell MD / lon Interpreting Provider: Fredis Connell MD Neck CTA 08/18/17 08:10 IMPRESSION: Minimal narrowing involving the M1 segment of the right middle cerebral artery that is likely not clinically significant. Moderate atherosclerosis involving the origin of both vertebral arteries. Moderate chronic small vessel ischemic disease within the periventricular white matter with associated cerebral atrophy. D/ / 08/18/2017 11:51:39 Fredis Connell MD / lon Interpreting Provider: Fredis Connell MD - VTE Documentation of Mechanical Device: Intermittent pneumatic compression device Consult Discharge Plan - Plan Instructions: Gabapentin (By mouth), Insulin Lispro Protamine/Insulin Lispro ( Injection), Diabetes Mellitus Type 2 in Adults (DC) [facility]errals: [facility] [Primary Care Provider] - Prescriptions: Gabapentin [Neurontin] 300 mg PO BID 7 Days #14 capsule Insulin LISPRO [HumaLOG] 10 units SQ ACHS 30 Days #1 vial <NathalyjohannaWilliam pak H - Last Filed: 09/17/17 16:06> Date of Encounter: 09/17/17 - Assessment and plan (1) Left-sided weakness Status: Acute (2) Frequent falls Status: Acute (3) HTN (hypertension) Status: Chronic Qualifiers: Hypertension type: essential hypertension Qualified Code(s): I10 - Essential (primary) hypertension (4) Diabetes 1.5, managed as type 2 Status: Chronic (5) Acute depression Status: Chronic (6) Atrial fibrillation Status: Acute Qualifiers: Atrial fibrillation type: paroxysmal Qualified Code(s): I48.0 - Paroxysmal atrial fibrillation (7) Dementia Status: Acute Qualifiers: Dementia type: unspecified type Dementia behavioral disturbance: without behavioral disturbance Qualified Code(s): F03.90 - Unspecified dementia without behavioral disturbance (8) Hyperlipidemia Status: Acute Qualifiers: Hyperlipidemia type: unspecified Qualified Code(s): E78.5 - Hyperlipidemia , unspecified (9) DVT prophylaxis Status: Acute (10) Uncontrolled diabetes mellitus Status: Chronic Qualifiers: Diabetes mellitus type: type 2 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 use Diabetes mellitus complication status: without complication Qualified Code(s): E11.65 - Type 2 diabetes mellitus with hyperglycemia; 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.4 - 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 of insulin; Z79.4 - tyre fitter ( current) use of insulin; Z79.4 - correction (current) use of insulin; Z79.4 - correction (current) use of insulin - Time Spent With Patient Total time spent is greater than 50% in coordination of care (as documented) at patient's floor/unit and/or counseling patient: - Constitutional Vitals: Temp Pulse Resp BP Pulse Ox 97.5 F L 86 18 135/89 97 08/20/17 10:59 08/20/17 10:59 08/20/17 10:59 08/20/17 10:59 08/20/17 10:59 Internal Medicine: Result - Labs CBC & Chem 7: 08/20/17 00:29 08/20/17 00:29 - ABG Interpretation ABG results: PT/INR, D-dimer PT 11.5 Seconds (9.4-12.1) 08/17/17 13:55 - Attending Attestation dysarthria and worsening dementia due to chronic recurrent CVAs No anticoagulation due to high risk of falling Uncontrolled diabetes patient will be sent on Lantus 60 units at night and 10 units of lispro with a sliding scale 3 times a day Continue aspirin Insulin requirements will need to be adjusted by the primary care physician as his hemoglobin A1c was 13 Ok to discharge I examined this patient and my medical decision-making was reviewed with the Resident Physician. I agree with the documented findings, disposition and treatment plan as described except to the extent set forth below.
--- NOTE | 2017-08-19 08:03 | Neurology Progress Note ---
<Usman So - Last Filed: 08/19/17 08:58> Date of Encounter: 08/19/17 Time of Encounter: 08:58 Assessment and Plan (1) Left-sided weakness Current Visit: Yes Status: Acute neuro exam shows improved left upper and lower extremity weakness now 4/5 CT head shows chronic small vessel ischemic changes, no acute abnormalities. Cerebellar atrophy. CTA head and neck negative for any acute process. Echocardiogram results pending. PT/OT recommends skilled services. continue Aspirin, statin. MRI pending (2) Frequent falls Current Visit: Yes Status: Acute x-ray pelvis knee, cxr negative for acute changes. CT cervical spine negative for fracture. plan as above. (3) HTN (hypertension) Current Visit: Yes Status: Chronic controlled. continue home medicaitons Qualifiers: Hypertension type: essential hypertension Qualified Code(s): I10 - Essential (primary) hypertension (4) Diabetes 1.5, managed as type 2 Current Visit: Yes Status: Chronic Hyperglycemic on admission uncontrolled HgA1c 13.3 patient will need strict adherence to diabetic diet and proper insulin regimen for glycemic control. (5) Atrial fibrillation Current Visit: Yes Status: Acute on admission EKg showed atrial fibrillation currently sinus rhythm not candidate for anticoagulation due to hx of multiple falls: high risk for bleeding. Qualifiers: Atrial fibrillation type: paroxysmal Qualified Code(s): I48.0 - Paroxysmal atrial fibrillation Subjective Principal diagnosis: generalized weakness Interval history: Patient is awake, alert sitting comfortably in bed eating breakfast. He denies any complaints overnight. Patient obtain MRI this morning and results are pending. Objective - Constitutional Vitals: Temp Pulse Resp BP Pulse Ox 98.3 F 85 17 109/69 96 08/19/17 06:51 08/19/17 06:51 08/19/17 06:51 08/19/17 06:51 08/19/17 06:51 - Neurological Exam Sensorimotor examination: Present: intact Motor Examination: Present: grossly full strength in all extremities Motor examination - right side: 5/5: deltoids, biceps, triceps, wrist flexion, wrist extension, security sales manager, hip flexors, tibialis Anterior, quadriceps, toe extension (EHL), plantarflexion Motor examination - left side: 4/5: deltoids, biceps, triceps, wrist flexion, wrist extension, hip flexors, security sales manager, quadriceps, tibialis Anterior, toe extension (EHL), plantarflexion Sensation intact: Present: intact Reflexes: Biceps: 2+, Triceps: 2+, Brachioradialis: 2+, Patella: 2+, Achilles: 2 + Mental Status Examination: Present: awake, oriented to person, oriented to place , oriented to time, follows commands appropriately, answers questions appropriately Cranial nerve examination: Present: PERRL, EOMI, visual shepherd intact, sensory to face intact, mastication intact, hearing is intact symmetrically, soft palate elevates bilaterally upon phonation, tongue protrudes midline, no atrophy or facial fasiculations present Cerebellar examination: Present: no dysmetria - VTE Documentation of Mechanical Device: Intermittent pneumatic compression device Results - Laboratory Findings CBC and BMP: 08/19/17 04:35 08/19/17 04:35 Abnormal lab findings: Abnormal lab results Sodium 134 mEq/L (136-145) L 08/19/17 04:35 Glucose 244 mg/dL (70-105) H 08/19/17 04:35 POC Glucose 343 mg/dL (70-99) H 08/18/17 20:56 Hemoglobin A1c 13.0 % (-5.6) H 08/19/17 04:35 AST 11 Units/L (13-39) L 08/18/17 03:41 Triglycerides 267 mg/dL (< 150) H 08/18/17 03:41 VLDL Cholesterol, Calc 53 mg/dL (< 31) H 08/18/17 03:41 HDL Cholesterol 26 mg/dL (40-59) L 08/18/17 03:41 Consult Discharge Plan - Plan [facility]: [facility]Primary Care Provider[facility] - Prescriptions: Insulin LISPRO [HumaLOG] 10 units SQ ACHS 30 Days #1 vial Insulin LISPRO [Admelog] 100 unit SQ ACHS 30 Days #1 vial <Brad Vail - Last Filed: 08/19/17 15:04> Date of Encounter: 08/19/17 Time of Encounter: 14:59 Assessment and Plan (1) Left-sided weakness Current Visit: Yes Status: Acute Patient was seen and examined I agree with the interpretation and documentation above. MRI scan of the brain did not reveal evidence of an acute infarct however did reveal evidence of scattered bilateral lacunar infarcts. Cortical atrophy is also present as well as cerebellar atrophy. I believe that the falls are multifactorial due to previous cerebral infarcts, left-sided weakness , diabetic polyneuropathy. Deconditioning is ALSO unlikely a part of the process. Echocardiogram is pending however this gentleman is obviously not going to be a good candidate for anticoagulation in any regard. Would simply recommend maintaining statin therapy, aspirin and antihypertensives. At this juncture we will sign off. I will reevaluate your request. Subjective Interval history: Chart was reviewed and patient was seen and examined independently. Case was discussed with Dr. So. Patient sitting up in chair in no acute distress. He was oriented times person and place. He does follow simple commands and answers simple questions. MRI scan of the brain reveals chronic ischemic white matter changes in bilateral basal ganglia infarcts as well as cortical atrophy. The CTA of the head and CTA of the neck were both negative. The MRI scan of the brain revealed no evidence of acute diffusion perfusion deficit. His my suspicion that his reason for falls are multifactorial. Objective - Constitutional Vitals: Temp Pulse Resp BP Pulse Ox 98.3 F 85 17 109/69 96 08/19/17 06:51 08/19/17 06:51 08/19/17 06:51 08/19/17 06:51 08/19/17 06:51 Results - Laboratory Findings CBC and BMP: 08/19/17 04:35 08/19/17 04:35 Abnormal lab findings: Abnormal lab results Sodium 134 mEq/L (136-145) L 08/19/17 04:35 Glucose 244 mg/dL (70-105) H 08/19/17 04:35 POC Glucose 343 mg/dL (70-99) H 08/18/17 20:56 Hemoglobin A1c 13.0 % (-5.6) H 08/19/17 04:35 AST 11 Units/L (13-39) L 08/18/17 03:41 Triglycerides 267 mg/dL (< 150) H 08/18/17 03:41 VLDL Cholesterol, Calc 53 mg/dL (< 31) H 08/18/17 03:41 HDL Cholesterol 26 mg/dL (40-59) L 08/18/17 03:41 Ur Specific [place] > 1.030 (1.010-1.025) H 08/19/17 09:39 Urine Glucose (UA) >=1000 mg/dL (Normal) H 08/19/17 09:39 Ur Squamous Epith Cells Many per lpf (None-Few) H 08/19/17 09:39
--- NOTE | 2017-08-19 09:22 | Discharge Summary ---
<Fredrick Weinstein - Last Filed: 08/19/17 10:18> Orders not resulted at time of discharge: Pending orders 08/20/17 04:00 BMP [Basic Metabolic Panel] AM 0400 CBC [Complete Blood Count] [HEME] AM 04008/21/17 04:00 BMP [Basic Metabolic Panel] AM 0400 CBC [Complete Blood Count] [HEME] AM 0400 08/22/17 04:00 BMP [Basic Metabolic Panel] AM 0400 CBC [Complete Blood Count] [HEME] AM 0400 08/23/17 04:00 BMP [Basic Metabolic Panel] AM 0400 CBC [Complete Blood Count] [HEME] AM 0400 08/24/17 04:00 BMP [Basic Metabolic Panel] AM 0400 CBC [Complete Blood Count] [HEME] AM 0400 Date of Encounter: 08/19/17 Time of Encounter: 09:18 - Discharge Diagnosis (1) Left-sided weakness Priority: Primary Status: Acute (2) Diabetes 1.5, managed as type 2 Priority: Secondary Status: Chronic (3) Dementia Priority: Secondary Status: Acute (4) Hyperlipidemia Priority: Secondary Status: Acute (5) DVT prophylaxis Priority: Secondary Status: Acute (6) Acute depression Priority: Secondary Status: Chronic (7) Frequent falls Priority: Secondary Status: Acute (8) HTN (hypertension) Priority: Secondary Status: Chronic (9) Atrial fibrillation Priority: Secondary Status: Acute (10) Uncontrolled diabetes mellitus Priority: Secondary Status: Acute Hospital course: Mr. Gimenez is a 81 year old male presented with Left sided weakness UE and LE and general weakness. Patient sustained a fall 3 days prior to hospitalization w/ no LOC. Patient was brought to the NH for stroke evaluation, and transferred to [place] for further workup. At [facility], neurology was consulted and further workup included head CT, CXR, head/neck CTA, Brain MRI which all came back negative for acute processes. It was determined that patient unlikely experienced CVA. On first day of hospitalization, patient was asymptomatic. A1C came back at 13.0. Pateint glucose was ~250-380's on medium SSI. Patient is already on insulin at home, and recommend close follow up and medication adjustment outpatient. uncontrolled Diabetes is likely a contributor to patient 's symptoms. Diabetes management was discussed with pharmacist. Patient was started on meal time insulin during hospitalization, but we recommend further adjustment outpatient. Other work up done at [facility] included pelvis, and knee XR which were all negative for acute processes. Patient to have follow up with PCP within 1 week of discharge. Discharge discussed with: patient, family, case management Time spent discussing smoking cessation with patient: more than 10 minutes - Time Spent with Patient Total time spent providing and/or coordinating discharge services: 40 minutes - Discharge Medications Prescriptions: Insulin LISPRO [HumaLOG] 10 units SQ ACHS 30 Days #1 vial Insulin LISPRO [Admelog] 100 unit SQ ACHS 30 Days #1 vial Home Medications: Allopurinol [Zyloprim] 300 mg PO DAILY 08/17/17 [History] Aspirin Enteric Coated [Aspirin EC] 81 mg PO DAILY 08/17/17 [History] Atorvastatin [Lipitor] 40 mg PO HS 08/17/17 [History] Bacitracin OINT [Ak-Tracin] 1 appl TP BID 08/17/17 [History] Bisacodyl [Woman's Laxative] 5 mg PO DAILY PRN 08/17/17 [History] Cholecalciferol (Vitamin D3) [Vitamin D3] 3,000 unit PO DAILY 08/17/17 [History] Duloxetine HCl [Cymbalta] 60 mg PO DAILY 08/17/17 [History] Furosemide [Lasix] 20 mg PO DAILY 08/17/17 [History] Gabapentin [Neurontin] 300 mg PO BID 08/17/17 [History] Insulin Glargine [Lantus] 60 unit SQ HS 08/17/17 [History] Latanoprost [Xalatan] 1 drop BOTH EYES HS 08/17/17 [History] Memantine HCl 10 mg PO BID 08/17/17 [History] Potassium Chloride [Klor-Con Sprinkle] 10 meq PO DAILY 08/17/17 [History] Saxagliptin HCl [Onglyza] 2.5 mg PO DAILY 08/17/17 [History] Sennosides/Docusate Sodium [Senna-Docusate Sodium Tablet] 2 tab PO BID PRN 08/17 [History] Tamsulosin [Flomax] 0.4 mg PO HS 08/17/17 [History] Timolol Maleate 0.5% 1 drop BOTH EYES QAM 08/17/17 [History] amLODIPine [Norvasc] 5 mg PO BID 08/17/17 [History] glipiZIDE [Glucotrol] 5 mg PO BID 08/17/17 [History] Insulin DETEMIR [Levemir] 60 unit SQ HS [id number] 08/19/17 [Rx] Insulin LISPRO [Admelog] 100 unit SQ ACHS 30 Days #1 vial 08/19/17 [Rx] Insulin LISPRO [HumaLOG] 10 units SQ ACHS 30 Days #1 vial 08/19/17 [Rx] Allergies/Adverse Reactions: 3 Allergy/AdvReac Type Severity Reaction Status Date / Time acetaminophen Allergy Itching Verified 08/17/17 13:45 metformin Allergy Hives Verified 08/17/17 13:45 Oxycodone Allergy Hives Verified 08/17/17 13:45 Terazosin Allergy Hives Verified 08/17/17 13:45 Date of admission: 08/17/17 20:45 [facility] care physician: [facility] Consults: 08/18/17 11:30 Consult to Heel Stiffener [CONS] Routine Reason for SW Consult: PT/OT rec SNF; [facility] aware Discharging clinician: Fredrick Weinstein Anticipated date of discharge: 08/19/17 - Constitutional Vitals: Temp Pulse Resp BP Pulse Ox 98.3 F 85 17 109/69 96 08/19/17 06:51 08/19/17 06:51 08/19/17 06:51 08/19/17 06:51 08/19/17 06:51 General appearance: Present: cooperative, A&O X 1, pleasant - Head Head exam: Present: atraumatic, normocephalic - Eye Eye exam: Present: PERRL, conjuntiva pink, sclera anicteric Pupils: Present: PERRL - Neck Neck exam general surgery: Present: supple, trachea midline. Absent: lymphadenopathy - Respiratory Respiratory exam: Present: CTAB. Absent: accessory muscle use, rales, rhonchi, wheezes - Cardiovascular Cardiovascular exam: Present: RRR, +S1, +S2. Absent: diastolic murmur, gallop, rubs, systolic murmur - GI/Abdominal GI/Abdominal exam: Present: normal bowel sounds, soft, no peritoneal signs. Absent: distended, tenderness - Extremities Exam Extremities exam: Present: warm, radial pulses palpable and symmetrical. Absent : calf tenderness, cyanotic, pedal edema - Neurological Exam Neurological exam: Present: alert, CN II-XII intact, oriented X3, reflexes normal, no focal deficits, strengths equal and symetr throughout. Absent: altered, motor sensory deficit, pronater drift, facial droop, speech deficit - Skin Skin exam: Present: dry, intact - Patient Status Disposition: Transfer SNF Condition: Fair Overall status at discharge: patient is progressing back to baseline - Discharge Instructions [facility] With: [facility] [Primary Care Provider] - - Diet and Activity Activity: as per physical therapy, increase activity as tolerated Diet: diabetic diet - VTE Documentation of Mechanical Device: Intermittent pneumatic compression device <William Calhoun - Last Filed: 08/19/17 10:49> Orders not resulted at time of discharge: Pending orders 08/20/17 04:00 BMP [Basic Metabolic Panel] AM 0400 CBC [Complete Blood Count] [HEME] AM 0400 08/21/17 04:00 BMP [Basic Metabolic Panel] AM 0400 CBC [Complete Blood Count] [HEME] AM 0400 08/22/17 04:00 BMP [Basic Metabolic Panel] AM 0400 CBC [Complete Blood Count] [HEME] AM 0400 08/23/17 04:00 BMP [Basic Metabolic Panel] AM 0400 CBC [Complete Blood Count] [HEME] AM 0400 08/24/17 04:00 BMP [Basic Metabolic Panel] AM 0400 CBC [Complete Blood Count] [HEME] AM 0400 Date of Encounter: 08/19/17 - Discharge Diagnosis (1) Left-sided weakness Status: Acute (2) Frequent falls Status: Acute (3) HTN (hypertension) Status: Chronic Qualifiers: Hypertension type: essential hypertension Qualified Code(s): I10 - Essential (primary) hypertension (4) Diabetes 1.5, managed as type 2 Status: Chronic (5) Acute depression Status: Chronic (6) Atrial fibrillation Status: Acute Qualifiers: Atrial fibrillation type: paroxysmal Qualified Code(s): I48.0 - Paroxysmal atrial fibrillation (7) Dementia Status: Acute (8) Hyperlipidemia Status: Acute (9) DVT prophylaxis Status: Acute (10) Uncontrolled diabetes mellitus Status: Acute Hospital course: Mr. 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 I agree with the documented findings, disposition and treatment plan as described except to the extent set forth below.
--- NOTE | 2017-08-19 09:41 | Physician Discharge Referral ---
<Fredrick Weinstein - Last Filed: 08/20/17 11:34> [facility] Referral Info Provider in Charge after Transfer: PCP Institutional Level of Care: Skilled - Diagnosis (1) Left-sided weakness Priority: Primary Status: Acute (2) Uncontrolled diabetes mellitus Priority: Secondary Status: Acute (3) Diabetes 1.5, managed as type 2 Priority: Secondary Status: Chronic (4) Dementia Priority: Secondary Status: Acute (5) Hyperlipidemia Priority: Secondary Status: Acute (6) DVT prophylaxis Priority: Secondary Status: Acute (7) Acute depression Priority: Secondary Status: Chronic (8) Frequent falls Priority: Secondary Status: Acute (9) HTN (hypertension) Priority: Secondary Status: Chronic (10) Atrial fibrillation Priority: Secondary Status: Acute - Transfer Medications Prescriptions: Gabapentin [Neurontin] 300 mg PO BID 7 Days #14 capsule Insulin LISPRO [HumaLOG] 10 units SQ ACHS 30 Days #1 vial Home Medications: Allopurinol [Zyloprim] 300 mg PO DAILY 08/17/17 [History] Aspirin Enteric Coated [Aspirin EC] 81 mg PO DAILY 08/17/17 [History] Atorvastatin [Lipitor] 40 mg PO HS 08/17/17 [History] Bacitracin OINT [Ak-Tracin] 1 appl TP BID 08/17/17 [History] Bisacodyl [Woman's Laxative] 5 mg PO DAILY PRN 08/17/17 [History] Cholecalciferol (Vitamin D3) [Vitamin D3] 3,000 unit PO DAILY 08/17/17 [History] Duloxetine HCl [Cymbalta] 60 mg PO DAILY 08/17/17 [History] Furosemide [Lasix] 20 mg PO DAILY 08/17/17 [History] Insulin Glargine [Lantus] 60 unit SQ HS 08/17/17 [History] Latanoprost [Xalatan] 1 drop BOTH EYES HS 08/17/17 [History] Memantine HCl 10 mg PO BID 08/17/17 [History] Potassium Chloride [Klor-Con Sprinkle] 10 meq PO DAILY 08/17/17 [History] Saxagliptin HCl [Onglyza] 2.5 mg PO DAILY 08/17/17 [History] Sennosides/Docusate Sodium [Senna-Docusate Sodium Tablet] 2 tab PO BID PRN 08/17 [History] Tamsulosin [Flomax] 0.4 mg PO HS 08/17/17 [History] Timolol Maleate 0.5% 1 drop BOTH EYES QAM 08/17/17 [History] amLODIPine [Norvasc] 5 mg PO BID 08/17/17 [History] glipiZIDE [Glucotrol] 5 mg PO BID 08/17/17 [History] Insulin DETEMIR [Levemir] 60 unit SQ HS [id number] 08/19/17 [Rx] Insulin LISPRO [HumaLOG] 10 units SQ ACHS 30 Days #1 vial 08/19/17 [Rx] Gabapentin [Neurontin] 300 mg PO BID 7 Days #14 capsule 08/20/17 [Rx] Allergies/Adverse Reactions: 3 Allergy/AdvReac Type Severity Reaction Status Date / Time acetaminophen Allergy Itching Verified 08/17/17 13:45 metformin Allergy Hives Verified 08/17/17 13:45 Oxycodone Allergy Hives Verified 08/17/17 13:45 Terazosin Allergy Hives Verified 08/17/17 13:45 - Respiratory Orders Smoking Cessation: Smoking cessation has been advised. For more information, call the [employer] Line at 2-687-ZYTQNOW. - Advance Directives Code Status: Full Code - Rehabiliation Orders Rehab Orders: Evaluation for Physical Therapy, Evaluation for Occupational Therapy CERTIFICATION: I certify that the transfer of the above named patient to an Extended Care Facility is necessary for the continuing treatment of the diagnosis listed. The above information is true and accurate reflection of patient's current condition. Confidential - Redisclosure prohibited without a patient's written consent. <William Calhonu - Last Filed: 08/20/17 12:53> - Diagnosis (1) Left-sided weakness Status: Acute (2) Frequent falls Status: Acute (3) HTN (hypertension) Status: Chronic (4) Diabetes 1.5, managed as type 2 Status: Chronic (5) Acute depression Status: Chronic (6) Atrial fibrillation Status: Acute (7) Dementia Status: Acute (8) Hyperlipidemia Status: Acute (9) DVT prophylaxis Status: Acute (10) Uncontrolled diabetes mellitus Status: Acute - Respiratory Orders Smoking Cessation: Smoking cessation has been advised. For more information, call the [employer] Quit Line at 6-517-TAQSNOW. CERTIFICATION: I certify that the transfer of the above named patient to an Extended Care Facility is necessary for the continuing treatment of the diagnosis listed. The above information is true and accurate reflection of patient's current condition. Confidential - Redisclosure prohibited without a patient's written consent.
[2017-08-19] MEDS: Cholecalciferol (D-3) 1,000 UNIT TABLET PO SCH (09:47)
[2017-08-19] MEDS: amLODIPine 5 MG TABLET PO SCH ×2 (09:47→21:04)
[2017-08-19] MEDS: Saxagliptin Hcl [Onglyza] 2.5 MG PO SCH (09:47)
[2017-08-19] MEDS: Gabapentin 300 MG CAPSULE PO SCH ×2 (09:47→21:04)
[2017-08-19] MEDS: Aspirin Enteric Coated 81 MG Tablet PO SCH (09:47)
[2017-08-19] MEDS: Insulin LISPRO 300 UNITS/3 ML VIAL SQ SCH ×4 (09:49→17:12)
[2017-08-19 09:52] LABS: Bilirubin,Urine Negative (Negative); Blood,Urine Negative (Negative); Clarity,Urine Clear (Clear); Color,Urine Yellow (Yellow); Glucose,Urine (UA) >=1000 mg/dL (Normal); Ketones,Urine Negative (Negative); Leukocyte Esterase,Urine Negative (Negative); Nitrite,Urine Negative (Negative); PH,Urine 5.5 pH Units (5.0-8.0); Protein,Urine Trace mg/dL (Neg-Trace); Specific Gravity,Urine > 1.030 (1.010-1.025); Urobilinogen,Urine Normal (Normal)
[2017-08-19 09:55] LABS: Bacteria,Urine None Seen per hpf (None-Few); Hyaline Casts,Urine None Seen per lpf (None-Few); RBC,Urine 0-3 per hpf (0-3); Squamous Epithelial Cell,Urine Many per lpf (None-Few); WBC,Urine 0-3 per hpf (0-3)
[2017-08-19] MEDS: Insulin DETEMIR 100 UNIT/ML X5UNITS SQ SCH (21:05)
[2017-08-19] MEDS: Latanoprost 2.5 ML BOTTLE BOTH EYES SCH (21:07)
[2017-08-20 00:54] LABS: Eosinophils % 3.2 %; Hematocrit 43.1 % (37.5-50.1); Hemoglobin 14.5 g/dL (12.9-16.9); Immature Granulocytes % 0.4 % (0-4); Lymphocytes % 24.2 %; Mean Corpuscular HGB Conc 33.6 g/dL (31.6-35.5); Mean Corpuscular Hemoglobin 28.9 pg (28.0-33.3); Mean Platelet Volume 10.9 fL (9.4-12.4); Platelet Count 286 K/mcL (140-400); Red Blood Count 5.01 M/mcL (4.19-5.50); Segmented Neutrophils % 62.7 %
[2017-08-20 00:55] LABS: Basophils # 0.1 K/mcL (0.0-0.2); Basophils % 0.5 %; Eosinophils # 0.3 K/mcL (0.0-0.6); Lymphocytes # 2.2 K/mcL (0.6-4.6); Monocytes # 0.8 K/mcL (0.0-1.3); Neutrophils # 5.7 K/mcL (1.6-8.9)
[2017-08-20 00:59] LABS: BUN/Creatinine Ratio 20 (6-26); Blood Urea Nitrogen 22 mg/dL (8-23); Calcium 8.8 mg/dL (8.6-10.3); Carbon Dioxide 24 mEq/L (23-29); Chloride 102 mEq/L (98-107); Glucose 268 mg/dL (70-105); Osmolality,Calculated 291 (280-300); Potassium 3.7 mEq/L (3.5-5.1); Sodium 134 mEq/L (136-145); eGFR For African Americans > 60 (> 60); eGFR For Non-African Americans > 60 (> 60)
[2017-08-20] MEDS: *HR* Enoxaparin 40 MG/0.4 ML SYRINGE SQ SCH (05:37)
[2017-08-20] MEDS: Cholecalciferol (D-3) 1,000 UNIT TABLET PO SCH (08:12)
[2017-08-20] MEDS: Gabapentin 300 MG CAPSULE PO SCH (08:13)
[2017-08-20] MEDS: Insulin LISPRO 300 UNITS/3 ML VIAL SQ SCH ×4 (08:13→11:47)
[2017-08-20] MEDS: amLODIPine 5 MG TABLET PO SCH (08:13)
[2017-08-20] MEDS: Aspirin Enteric Coated 81 MG Tablet PO SCH (08:13)
[2017-08-20] MEDS: Saxagliptin Hcl [Onglyza] 2.5 MG PO SCH (08:14)
[2017-08-20 11:00] VITALS: BP 135/89
--- NOTE | 2017-08-20 13:19 | Internal Med Progress Note ---
<Adalberto Beck - Last Filed: 08/20/17 13:52> Date of Encounter: 08/20/17 Time of Encounter: 08:45 - Assessment and plan (1) Left-sided weakness Status: Acute Assessment and plan: Neurology is on board, work up negative for CVA. - MRI negative CT head negative for hemorrhage but does show chronic small vessel ischemic changes, cerebellar atrophy. CTA head/neck - Minimal narrowing involving the M1 segment of the right middle cerebral artery that is likely not clinically significant. Moderate chronic small vessel ischemic disease within the periventricular white matter with associated cerebral atrophy. Continue ASA, statin (2) Frequent falls Status: Acute Assessment and plan: Fall precautions - up only with assistance (3) HTN (hypertension) Status: Chronic Assessment and plan: michelle meds include amlodopine, BP has been well controlled. - continue amlodipine, flomax - closely monitor BP Qualifiers: Hypertension type: essential hypertension Qualified Code(s): I10 - Essential (primary) hypertension (4) Diabetes 1.5, managed as type 2 Status: Chronic Assessment and plan: Glucose has been poorly controlled since hospitalization. Follow closely. - continue SSI medium dose. (5) Acute depression Status: Chronic Assessment and plan: chronic. will continue to monitor. denies suicidal or homicidal ideation at this time. (6) Atrial fibrillation Status: Acute Assessment and plan: patient has known hx of afib, but due to frequent falls, not a candidate for anti-coag at this point. Qualifiers: Atrial fibrillation type: paroxysmal Qualified Code(s): I48.0 - Paroxysmal atrial fibrillation (7) Dementia Status: Acute Assessment and plan: continue home meds. Qualifiers: Dementia type: unspecified type Dementia behavioral disturbance: without behavioral disturbance Qualified Code(s): F03.90 - Unspecified dementia without behavioral disturbance (8) Hyperlipidemia Status: Acute Assessment and plan: chronic. 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 He was conditionally discharged yesterday awaiting bed placement. - Constitutional Vitals: Temp Pulse Resp BP Pulse Ox 97.5 F L 86 18 135/89 97 08/20/17 10:59 08/20/17 10:59 08/20/17 10:59 08/20/17 10:59 08/20/17 10:59 General appearance: Present: cooperative, A&O X 1, pleasant - Head Head exam: Present: atraumatic, normocephalic - Eye Eye exam: Present: PERRL, conjuntiva pink, sclera anicteric Pupils: Present: PERRL - ENT ENT exam: Present: mucous membranes moist, normal oropharynx - Neck Neck exam general surgery: Present: supple, trachea midline. Absent: lymphadenopathy - Respiratory Respiratory exam: Present: CTAB. Absent: accessory muscle use, rales, rhonchi, wheezes - Cardiovascular Cardiovascular exam: Present: RRR, +S1, +S2. Absent: diastolic murmur, gallop, rubs, systolic murmur - GI/Abdominal GI/Abdominal exam: Present: normal bowel sounds, soft, no peritoneal signs. Absent: distended, tenderness - Extremities Exam Extremities exam: Present: warm, radial pulses palpable and symmetrical. Absent : calf tenderness, cyanotic, pedal edema - Back Exam Back exam: Present: normal inspection. Absent: tenderness - Neurological Exam Neurological exam: Present: CN II-XII intact, oriented X3, no focal deficits. Absent: pronater drift, facial droop, speech deficit - Psychiatric Psychiatric exam: Present: normal affect, normal mood - Skin Skin exam: Present: dry, intact, normal color, warm Internal Medicine: Result - Labs CBC & Chem 7: 08/20/17 00:29 08/20/17 00:29 Labs: Short CBC 08/20/17 Range/Units 00:29 WBC 9.1 (4.3-11.1) K/mcL Hgb 14.5 (12.9-16.9) g/dL Hct 43.1 (37.5-50.1) % Plt Count 286 (140-400) K/mcL Neutrophils # 5.7 (1.6-8.9) K/mcL BMP 08/20/17 00:29 Sodium 134 L Potassium 3.7 Chloride 102 Carbon Dioxide 24 BUN 22 Creatinine 1.11 Glucose 268 H Calcium 8.8 - ABG Interpretation ABG results: PT/INR, D-dimer PT 11.5 Seconds (9.4-12.1) 08/17/17 13:55 - Pulse Oximetry Interpretation Digit-Finger Pulse Oximetry Readin (On RA) - Impressions Impressions Echocardiogram 08/18/17 08:12 Impressions: LVEF 60%. Normal LV chamber size and function. Indeterminate diastolic function. Atypical septal motion consistent with post-operative status. Normal right ventricular structure and function. Mild aortic sclerosis by Doppler. Mean gradient 10 mmHg. No evidence of pulmonary hypertension. Left Ventricular Wall Motion: Rest Echo Findings All wall segments showed normal motion. Findings: Study Quality * Technically sub-optimal due to poor echocardiographic windows. ECG Findings * Difficult to determine rhythm. Bundle branch block, PVCs noted. Left Ventricle * LVEF 60%. * Normal LV chamber size and function. Wall thickness not well visualized or measured. * Indeterminate diastolic function. * Atypical septal motion consistent with post-operative status. Right Ventricle * Normal right ventricular structure and function. Left Atrium * Moderately dilated left atrium. Right Atrium * Normal right atrial size. Interatrial Septum * No evidence of PFO with agitated saline contrast. Aortic Valve * Aortic valve not well visualized. * Mildly calcified aortic valve leaflets. * No aortic regurgitation. * Mild aortic sclerosis by Doppler. Mean gradient 10 mmHg. Mitral Valve * Mild mitral annular calcification * Mildly calcified mitral valve leaflets. * No mitral regurgitation. * No mitral stenosis. Tricuspid Valve * Normal tricuspid valve structure and function. * Trace tricuspid regurgitation. * No evidence of pulmonary hypertension. Pulmonic Valve * Normal pulmonic valve structure and function. * No pulmonic regurgitation. Aorta * Normally sized aortic root. Pericardium * The pericardium appears normal. IVC * Normal IVC dimensions and inspiratory collapse. Pulmonary Artery * Normal visualized portions of the main pulmonary artery. - VTE Documentation of Mechanical Device: Intermittent pneumatic compression device Consult Discharge Plan - Plan Instructions: Gabapentin (By mouth), Insulin Lispro Protamine/Insulin Lispro ( Injection), Diabetes Mellitus Type 2 in Adults (DC) [facility]errals: [facility] [Primary Care Provider[facility] - Prescriptions: Gabapentin [Neurontin] 300 mg PO BID 7 Days #14 capsule Insulin LISPRO [HumaLOG] 10 units SQ ACHS 30 Days #1 vial <KathiadonaWilliam H - Last Filed: 08/20/17 14:11> Date of Encounter: 08/20/17 - Assessment and plan (1) Left-sided weakness Status: Acute (2) Frequent falls Status: Acute (3) HTN (hypertension) Status: Chronic Qualifiers: Hypertension type: essential hypertension Qualified Code(s): I10 - Essential (primary) hypertension (4) Diabetes 1.5, managed as type 2 Status: Chronic (5) Acute depression Status: Chronic (6) Atrial fibrillation Status: Acute Qualifiers: Atrial fibrillation type: paroxysmal Qualified Code(s): I48.0 - Paroxysmal atrial fibrillation (7) Dementia Status: Acute Qualifiers: Dementia type: unspecified type Dementia behavioral disturbance: without behavioral disturbance Qualified Code(s): F03.90 - Unspecified dementia without behavioral disturbance (8) Hyperlipidemia Status: Acute Qualifiers: Hyperlipidemia type: unspecified Qualified Code(s): E78.5 - Hyperlipidemia , unspecified (9) DVT prophylaxis Status: Acute (10) Uncontrolled diabetes mellitus Status: Chronic Qualifiers: Diabetes mellitus type: type 2 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 Diabetes mellitus complication status: without complication Qualified Code(s): E11.65 - Type 2 diabetes mellitus with hyperglycemia; 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; Z79.4 - [facility] ( current) use of insulin; 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; 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 - Time Spent With Patient Total time spent is greater than 50% in coordination of care (as documented) at patient's floor/unit and/or counseling patient: - Constitutional Vitals: Temp Pulse Resp BP Pulse Ox 97.5 F L 86 18 135/89 97 08/20/17 10:59 08/20/17 10:59 08/20/17 10:59 08/20/17 10:59 08/20/17 10:59 Internal Medicine: Result - Labs CBC & Chem 7: 08/20/17 00:29 08/20/17 00:29 Labs: Short CBC 08/20/17 Range/Units 00:29 WBC 9.1 (4.3-11.1) K/mcL Hgb 14.5 (12.9-16.9) g/dL Hct 43.1 (37.5-50.1) % Plt Count 286 (140-400) K/mcL Neutrophils # 5.7 (1.6-8.9) K/mcL BMP 08/20/17 00:29 Sodium 134 L Potassium 3.7 Chloride 102 Carbon Dioxide 24 BUN 22 Creatinine 1.11 Glucose 268 H Calcium 8.8 - ABG Interpretation ABG results: PT/INR, D-dimer PT 11.5 Seconds (9.4-12.1) 08/17/17 13:55 - Impressions Impressions Echocardiogram 08/18/17 08:12 Impressions: LVEF 60%. Normal LV chamber size and function. Indeterminate diastolic function. Atypical septal motion consistent with post-operative status. Normal right ventricular structure and function. Mild aortic sclerosis by Doppler. Mean gradient 10 mmHg. No evidence of pulmonary hypertension. Left Ventricular Wall Motion: Rest Echo Findings All wall segments showed normal motion. Findings: Study Quality * Technically sub-optimal due to poor echocardiographic windows. ECG Findings * Difficult to determine rhythm. Bundle branch block, PVCs noted. Left Ventricle * LVEF 60%. * Normal LV chamber size and function. Wall thickness not well visualized or measured. * Indeterminate diastolic function. * Atypical septal motion consistent with post-operative status. Right Ventricle * Normal right ventricular structure and function. Left Atrium * Moderately dilated left atrium. Right Atrium * Normal right atrial size. Interatrial Septum * No evidence of PFO with agitated saline contrast. Aortic Valve * Aortic valve not well visualized. * Mildly calcified aortic valve leaflets. * No aortic regurgitation. * Mild aortic sclerosis by Doppler. Mean gradient 10 mmHg. Mitral Valve * Mild mitral annular calcification * Mildly calcified mitral valve leaflets. * No mitral regurgitation. * No mitral stenosis. Tricuspid Valve * Normal tricuspid valve structure and function. * Trace tricuspid regurgitation. * No evidence of pulmonary hypertension. Pulmonic Valve * Normal pulmonic valve structure and function. * No pulmonic regurgitation. Aorta * Normally sized aortic root. Pericardium * The pericardium appears normal. IVC * Normal IVC dimensions and inspiratory collapse. Pulmonary Artery * Normal visualized portions of the main pulmonary artery. 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 I agree with the documented findings, disposition and treatment plan as described except to the extent set forth below.
--- NOTE | 2017-08-21 16:21 | Electrocardiograph Report ---
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
== END 2017-08-20 13:22 | DRG 57 ==
LOC: EMEROO 13:32 → 2NENU 13:32
PROVIDERS: ADMIT Internal Medicine Cardiovascular Disease; ATTEND Internal Medicine Cardiovascular Disease